=== PATIENT | female | born 1940 | race Caucasian/White ===

== ENCOUNTER 2021-09-03 17:56 | Observation (INO) ==
[2021-09-03] MEDS ORDERED: Ondansetron 4 MG/2 ML VIAL IVP ONE (18:28)
[2021-09-03] MEDS ORDERED: 0.9 % Sodium Chloride 1,000 ML IVC ONE (18:28)
[2021-09-03 18:39] LABS: Bilirubin,Urine Negative (Negative); Blood,Urine Trace-intact (Negative); Clarity,Urine Clear (Clear); Color,Urine Yellow (Yellow); Glucose,Urine (UA) Normal (Normal); Ketones,Urine Negative (Negative); Leukocyte Esterase,Urine Negative (Negative); Nitrite,Urine Negative (Negative); Protein,Urine 100 mg/dL (Neg-Trace); Specific Gravity,Urine >= 1.030 (1.010-1.025); Urobilinogen,Urine Normal (Normal)
[2021-09-03 18:48] LABS: VBG HCO3 25 mEq/L (21-27); VBG PCO2 38 mmHg (41-51); VBG PH 7.43 pH Units (7.32-7.42); VBG PO2 48 mmHg (25-50)
[2021-09-03 18:50] LABS: Basophils % 0.3 %; Eosinophils % 0.2 %; Hematocrit 33.8 % (35.3-44.9); Hemoglobin 11.7 g/dL (11.5-15.4); Immature Granulocytes % 0.3 % (0-4); Lymphocytes # 1.9 K/mcL (0.6-4.6); Lymphocytes % 32.2 %; Mean Corpuscular HGB Conc 34.6 g/dL (31.6-35.5); Mean Corpuscular Hemoglobin 28.6 pg (28.0-33.3); Mean Corpuscular Volume 82.6 fL (83.0-100.0); Mean Platelet Volume 8.8 fL (9.4-12.4); Monocytes # 0.5 K/mcL (0.0-1.3); Monocytes % 9.1 %; Neutrophils # 3.4 K/mcL (1.6-8.9); Platelet Count 317 K/mcL (140-400); Red Blood Count 4.09 M/mcL (3.82-4.97); Red Cell Distribution Width 12.9 % (11.5-14.5); Segmented Neutrophils % 57.9 %; White Blood Count 5.9 K/mcL (4.3-11.1)
[2021-09-03 18:54] LABS: RBC,Urine 0-3 per hpf (0-3); Squamous Epithelial Cell,Urine Moderate per hpf (None-Few)
[2021-09-03 18:55] LABS: Bacteria,Urine Few per hpf (None-Few)
[2021-09-03 19:18] LABS: Alanine Aminotransferase 13 Units/L (7-52); Albumin 3.9 g/dL (3.5-5.7); Albumin/Globulin Ratio 1.3 (1.1-2.2); Alkaline Phosphatase 63 Units/L (34-104); Aspartate Amino Transferase 18 Units/L (13-39); BUN/Creatinine Ratio 12 (6-26); Bilirubin,Indirect 0.3 mg/dL (0.0-1.0); Bilirubin,Total 0.3 mg/dL (0.3-1.0); Blood Urea Nitrogen 12 mg/dL (8-23); Calcium 9.4 mg/dL (8.6-10.3); Carbon Dioxide 27 mEq/L (23-29); Chloride 88 mEq/L (98-107); Globulin 2.9 g/dL (2.4-3.5); Glucose 209 mg/dL (70-105); Lipase 94 Units/L (11-82); Osmolality,Calculated 256 (280-300); Potassium 3.9 mEq/L (3.5-5.1); Sodium 120 mEq/L (136-145); Total Protein 6.8 g/dL (6.4-8.9); Troponin I < 0.03 ng/mL (< 0.04); eGFR For African Americans > 60 (> 60); eGFR For Non-African Americans 53 (> 60)
[2021-09-03] MEDS ORDERED: Ondansetron 4 MG/2 ML VIAL IVP PRN (23:12)
[2021-09-03] MEDS ORDERED: Naloxone 0.4 MG/ML INJ IVP PRN (23:12)
[2021-09-03 23:48] LABS: BUN/Creatinine Ratio 12 (6-26); Blood Urea Nitrogen 10 mg/dL (8-23); Calcium 8.5 mg/dL (8.6-10.3); Carbon Dioxide 27 mEq/L (23-29); Chloride 92 mEq/L (98-107); Glucose 166 mg/dL (70-105); Osmolality,Calculated 263 (280-300); Sodium 125 mEq/L (136-145); eGFR For African Americans > 60 (> 60); eGFR For Non-African Americans > 60 (> 60)
[2021-09-04] MEDS ORDERED: D5% in Water 1,000 ML IVC PRN ×2 (00:57→11:47)
[2021-09-04] MEDS ORDERED: Dextrose Gel 15 GM/37.5 ML TUBE PO PRN ×4 (00:57→11:47)
[2021-09-04] MEDS ORDERED: *HR* Dextrose 50 % in Water (Syg) 50 ML SYRINGE IVP PRN ×2 (00:57→11:47)
[2021-09-04 05:07] LABS: Blood Urea Nitrogen 10 mg/dL (8-23); Calcium 8.8 mg/dL (8.6-10.3); Carbon Dioxide 28 mEq/L (23-29); Chloride 92 mEq/L (98-107); Glucose 178 mg/dL (70-105); Osmolality,Calculated 267 (280-300); Potassium 4.1 mEq/L (3.5-5.1); Sodium 127 mEq/L (136-145)
[2021-09-04 05:08] LABS: BUN/Creatinine Ratio 11 (6-26); eGFR For African Americans > 60 (> 60); eGFR For Non-African Americans > 60 (> 60)
[2021-09-04] MEDS: (Dapagliflozin Propanediol [Farxiga] 5 MG Tablet) PO SCH (09:32)
[2021-09-04] MEDS: Insulin LISPRO 300 UNITS/3 ML VIAL SUBQ SCH ×5 (09:33→21:06)
[2021-09-04] MEDS: FLUoxetine 20 MG CAPSULE PO SCH (09:34)
[2021-09-04] MEDS: lisinopriL 20 MG TABLET PO SCH (09:34)
[2021-09-04] MEDS: 0.9 % Sodium Chloride 1,000 ML IVC SCH (15:20)
[2021-09-04] MEDS ORDERED: Insulin DETEMIR 100 UNIT/ML per UNIT SUBQ ONE (20:14)
[2021-09-04] MEDS ORDERED: *HR* LORazepam 0.5 MG TABLET PO SCH (21:00)
[2021-09-04] MEDS ORDERED: Insulin DETEMIR 100 UNIT/ML X5UNITS SUBQ SCH (21:00)
[2021-09-04] MEDS: carvediloL 6.25 MG TABLET PO SCH (21:34)
[2021-09-05] MEDS ORDERED: *HR* Labetalol 20 MG/4 ML SYRINGE IVP PRN (00:21)
[2021-09-05 04:34] LABS: BUN/Creatinine Ratio 13 (6-26); Blood Urea Nitrogen 11 mg/dL (8-23); Calcium 8.7 mg/dL (8.6-10.3); Carbon Dioxide 30 mEq/L (23-29); Chloride 94 mEq/L (98-107); Glucose 167 mg/dL (70-105); Osmolality,Calculated 273 (280-300); Potassium 4.1 mEq/L (3.5-5.1); Sodium 130 mEq/L (136-145); eGFR For African Americans > 60 (> 60); eGFR For Non-African Americans > 60 (> 60)
[2021-09-05] MEDS: 0.9 % Sodium Chloride 1,000 ML IVC SCH (05:29)
[2021-09-05] MEDS ORDERED: *HR* Enoxaparin 40 MG/0.4 ML SYRINGE SQ SCH (06:00)
[2021-09-05 07:58] VITALS: RESP 20
[2021-09-05] MEDS ORDERED: estradioL 0.5 MG TABLET PO SCH (09:00)
[2021-09-05] MEDS ORDERED: *HR* SitaGLIPtin 100 MG TABLET PO SCH (09:00)
[2021-09-05] MEDS ORDERED: *HR* Pioglitazone 15 MG TABLET PO SCH (09:00)
[2021-09-05] MEDS ORDERED: Megestrol Acetate 400 MG/10 ML UDC PO SCH (09:00)
[2021-09-05] MEDS ORDERED: Cholecalciferol (D-3) 1,000 UNIT (25MCG) TABLET PO SCH (09:00)
[2021-09-05] MEDS: lisinopriL 20 MG TABLET PO SCH (09:12)
[2021-09-05] MEDS: carvediloL 6.25 MG TABLET PO SCH (09:13)
[2021-09-05] MEDS: FLUoxetine 20 MG CAPSULE PO SCH (09:13)
[2021-09-05] MEDS: Insulin LISPRO 300 UNITS/3 ML VIAL SUBQ SCH ×2 (09:23→12:19)
[2021-09-05] MEDS: (Dapagliflozin Propanediol [Farxiga] 5 MG Tablet) PO SCH (09:37)
[2021-09-05] MEDS ORDERED: amLODIPine 5 MG TABLET PO SCH (09:45)
[2021-09-05] MEDS ORDERED: 0.9 % Sodium Chloride 1,000 ML IVC SCH (10:01)
[2021-09-05 11:29] VITALS: BP 138/76; PULSE 72; TEMP 97.7; O2SAT 92
[2021-09-05] MEDS ORDERED: carvediloL 6.25 MG TABLET PO SCH (21:08)
== END 2021-09-05 16:30 | disposition home or self-care (01) ==
LOC: EMEROOPIK 17:56 → INPPIK 17:56
PROVIDERS: ADMIT Internal Medicine; ATTEND Internal Medicine